=== PATIENT | male | born 1985 | race Caucasian/White ===

== ENCOUNTER → 2017-08-02 | Outpatient (CLI) | payer BC ==
--- NOTE | 2017-08-06 23:57 | SLEEPCENT ---
DATE OF PROCEDURE: 08/02/2017 ORDERED BY: Yaniv Xiong Nocturnal polysomnography was performed due to concern for the obstructive sleep apnea syndrome in this patient with comorbidities of hypertension. 7 hours and 13 minutes of data were reviewed. There were 348 minutes of sleep identified. Sleep latency was prolonged at 12 minutes. Rapid eye movement (REM) latency was prolonged at 200 minutes. Sleep architecture showed fragmentation. Three REM periods were appreciated late in the study. Overall sleep efficiency was 81.6% with significant reduction in REM time noted. The EKG showed baseline sinus rhythm with an average heart rate of 80 beats per minute. Rate variability was seen surrounding respiratory events. Rate ranged 50 to 80 beats per minute. EEG showed mild coarsening in background, some alpha intrusion at the non-REM stages. No focal events were identified. There were 41 respiratory events identified of 10 seconds in duration or greater for an apnea-hypopnea index of 7.1. The events were primarily obstructive, not exclusive to sleep stage nor body posture. Arousals from respiratory events occurred 4.7 times per hour and oxygen desaturations were seen into the 80s. There was some limb activity but arousals from limb events were few and remaining measures of sleep physiology were normal. IMPRESSION: Obstructive sleep apnea syndrome (G47.33), apnea-hypopnea index of 7.1. RECOMMENDATION: Consideration should be given for referral for a formal sleep evaluation and in laboratory pressure titration.
== END ==
LOC: M SLEEP 19:49
PROVIDERS: ATTEND Physician Assistant
DX: G47.33 Obstructive sleep apnea (adult) (pediatric) (principal)

== ENCOUNTER → 2018-12-24 | Outpatient (REF) ==
--- NOTE | 2018-12-25 02:26 | REP ---
Clinical: Pain and disability. Technique: AP, lateral, coned-down views of the lumbar spine. Findings: Three views of the lumbosacral spine demonstrate satisfactory alignment and lordosis without acute fracture / compression injury or subluxation. No significant degenerative changes are appreciated. Impression: Age-appropriate examination. No acute fracture / compression injury or subluxation. Electronically Signed by Lam Pedro MD 12/25/2018 02:17 A
--- NOTE | 2018-12-25 02:28 | REP ---
Clinical: Pain and disability. Technique: AP, lateral, open mouth views of the cervical spine. Findings: Alignment and lordosis maintained. Vertebral bodies are intact. No acute fracture / compression injury or subluxation. Mild endplate sclerosis and disc space narrowing at C7-T1 cannot be excluded. Remainder examination is relatively normal for age. Impression: Mild degenerative changes at C7-T1 suspected. Electronically Signed by Lam Pedro MD 12/25/2018 02:20 A
== END ==
LOC: M SMT 09:17
PROVIDERS: ATTEND Internal Medicine
DX: Z02.89 Encounter for other administrative examinations (principal)

== ENCOUNTER → 2021-01-04 | Outpatient (REF) | payer BC ==
[2021-01-04 18:13] LABS: BASO # 0.1 10^3/uL (0.0-0.2); BASO % 0.9 % (0.0-1.0); EOS # 0.1 10^3/uL (0.0-0.5); EOS % 1.8 % (0.0-3.0); HEMATOCRIT 45.8 % (42.0-52.0); HEMOGLOBIN 16.2 g/dl (13.5-17.5); MEAN CORPUSCULAR HEMOGLOBIN 30.3 pg (27.0-33.0); MEAN CORPUSCULAR HGB CONC 35.4 g/dl (32.0-36.5); MEAN CORPUSCULAR VOLUME 85.6 fl (80.0-96.0); MONO # 0.6 10^3/uL (0.0-0.8); NEUTROPHILS # 5.1 10^3/uL (1.5-8.5); NEUTROPHILS % 64.9 % (36.0-66.0); PLATELET COUNT, AUTOMATED 242 10^3/uL (150-450); RED BLOOD COUNT 5.35 10^6/uL (4.30-6.10); WHITE BLOOD COUNT 7.9 10^3/uL (4.0-10.0)
[2021-01-04 18:37] LABS: C REACTIVE PROTEIN QUANTITATIV 0.34 MG/DL (0.00-0.30); RHEUMATOID FACTOR QUANT < 10.0 IU/ML (<15.0)
[2021-01-04 18:47] LABS: BLOOD UREA NITROGEN 13 MG/DL (7-18); CHLORIDE LEVEL 105 MEQ/L (98-107); CREATININE FOR GFR 0.99 MG/DL (0.70-1.30); GLOMERULAR FILTRATION RATE > 60.0 (>60); GLUCOSE, FASTING 77 MG/DL (70-100); POTASSIUM SERUM 4.6 MEQ/L (3.5-5.1); SODIUM LEVEL 138 MEQ/L (136-145)
[2021-01-04 18:48] LABS: ALBUMIN 4.4 GM/DL (3.2-5.2); ALT/SGPT 41 U/L (12-78); BILIRUBIN,TOTAL 0.5 MG/DL (0.2-1.0); CALCIUM LEVEL 9.4 MG/DL (8.5-10.1); CARBON DIOXIDE LEVEL 30 MEQ/L (21-32); FREE T4 0.72 NG/DL (0.76-1.46); THYROID STIMULATING HORMONE 0.577 uIU/ML (0.358-3.740); TOTAL PROTEIN 7.4 GM/DL (6.4-8.2)
[2021-01-04 18:50] LABS: TOTAL 25(OH) VITAMIN D 18.9 NG/ML (30.0-100.0); VITAMIN B12 LEVEL 276 PG/ML
[2021-01-04 18:51] LABS: FOLATE 3.2 NG/ML
== END ==
LOC: M SFHCADAM 14:59
PROVIDERS: ATTEND Physician Assistant
DX: K21.9 Gastro-esophageal reflux disease without esophagitis (principal); F32.2 Major depressive disorder, single episode, severe without psychotic features; G43.101 Migraine with aura, not intractable, with status migrainosus

== ENCOUNTER → 2021-09-19 | Outpatient (REF) | payer BC | LOC: M SFHCADAM 10:24 | PROVIDERS: ATTEND Physician Assistant | DX: Z53.20 Procedure and treatment not carried out because of patient's decision for unspecified reasons (principal) ==

== ENCOUNTER → 2021-11-02 | Outpatient (REF) | payer BC ==
[2021-11-02 14:27] LABS: TOTAL 25(OH) VITAMIN D 22.6 NG/ML (30.0-100.0)
== END ==
LOC: M LABDRWAD 12:48
PROVIDERS: ATTEND Physician Assistant
DX: E55.9 Vitamin D deficiency, unspecified (principal); E53.8 Deficiency of other specified B group vitamins

== ENCOUNTER → 2021-11-02 | Outpatient (REF) | payer BC ==
[2021-11-02 14:18] LABS: C REACTIVE PROTEIN QUANTITATIV < 0.30 MG/DL (0.00-0.30); RHEUMATOID FACTOR QUANT < 10.0 IU/ML (<15.0); URIC ACID 6.7 MG/DL (3.5-7.2)
[2021-11-03 12:12] LABS: ANTI DOUBLE STRAND-DNA AB 13 IU/mL (0-9); ANTINUCLEAR ANTIBODIES DIRECT Positive (Negative); RNP ANTIBODIES <0.2 AI (0.0-0.9); SJOGREN'S ANTI SS-A <0.2 AI (0.0-0.9); SJOGREN'S ANTI SS-B <0.2 AI (0.0-0.9); SMITH ANTIBODIES <0.2 AI (0.0-0.9)
== END ==
LOC: M LABDRWAD 12:45
PROVIDERS: ATTEND Orthopaedic Surgery
DX: M25.532 Pain in left wrist (principal); M25.531 Pain in right wrist

== ENCOUNTER → 2022-12-05 | Outpatient (CLI) | payer BC, MEDICARE ==
[~2022-12-05] MED LIST: BACL1TAB9 PO; DULO40CA PO; GABA600T4 PO; OMEP40CA5 PO; TIZA6CAP PO
== END ==
LOC: M LABSMTC 09:20
PROVIDERS: ATTEND Anesthesiology
DX: Z01.812 Encounter for preprocedural laboratory examination (principal); Z11.52 Encounter for screening for COVID-19

== ENCOUNTER 2022-12-10 11:14 | Day surgery (SDC) | payer BC, MEDICARE ==
[~2022-12-10] VITALS: Ht 180.3 cm; Wt 88.9 kg
[~2022-12-10 11:14] MED LIST changes: +NS 1,000 ML IV ONE
[2022-12-10] MEDS ORDERED: propofoL 200 MG/20 ML VIAL As Ordered ONE ×2 (13:29→14:10)
[2022-12-10] MEDS ORDERED: fentaNYL 100 MCG/2 ML INJECTION As Ordered ONE (13:29)
[2022-12-10] MEDS ORDERED: LIDOCAINE 2% 100MG/5ML SDV (FOR ANES.) As Ordered ONE (13:29)
[2022-12-10 14:41] VITALS: BP 120/54
== END 2022-12-10 15:06 | disposition home or self-care (01) ==
LOC: M OPP 11:14
PROVIDERS: ATTEND Internal Medicine Gastroenterology
DX: D12.6 Benign neoplasm of colon, unspecified (principal); K57.30 Diverticulosis of large intestine without perforation or abscess without bleeding; K64.4 Residual hemorrhoidal skin tags; K64.8 Other hemorrhoids; K92.1 Melena; Z80.0 Family history of malignant neoplasm of digestive organs; K22.89 Other specified disease of esophagus; K29.70 Gastritis, unspecified, without bleeding; G47.33 Obstructive sleep apnea (adult) (pediatric); F41.9 Anxiety disorder, unspecified; G43.909 Migraine, unspecified, not intractable, without status migrainosus; Z79.891 Long term (current) use of opiate analgesic; Z79.899 Other long term (current) drug therapy
CPT/HCPCS: 43239; 45385; 88305; J3010

== ENCOUNTER → 2022-12-26 | Outpatient (REF) | payer BC, MEDICARE ==
[~2022-12-26] MED LIST changes: -NS 1,000 ML IV ONE
[2022-12-26 13:48] LABS: HEMATOCRIT 46.1 % (42.0-52.0); HEMOGLOBIN 15.9 g/dl (13.5-17.5); MEAN CORPUSCULAR HEMOGLOBIN 29.8 pg (27.0-33.0); MEAN CORPUSCULAR HGB CONC 34.5 g/dl (32.0-36.5); MEAN CORPUSCULAR VOLUME 86.3 fl (80.0-96.0); PLATELET COUNT, AUTOMATED 221 10^3/uL (150-450); RED BLOOD COUNT 5.34 10^6/uL (4.30-6.10)
[2022-12-26 13:58] LABS: ALKALINE PHOSPHATASE 81 U/L (46-116); ALT/SGPT 25 U/L (7.0-40); AST/SGOT 18 U/L (<34); BILIRUBIN,TOTAL 0.5 MG/DL (0.3-1.2); BLOOD UREA NITROGEN 13 MG/DL (9-23); CALCIUM LEVEL 9.2 MG/DL (8.5-10.1); CARBON DIOXIDE LEVEL 30 MMOL/L (20-31); CHLORIDE LEVEL 102 MMOL/L (98-107); CREATININE FOR GFR 0.89 MG/DL (0.70-1.30); FREE T4 0.95 NG/DL (0.89-1.76); GLOMERULAR FILTRATION RATE > 60.0 (>60); GLUCOSE, FASTING 87 MG/DL (60-100); POTASSIUM SERUM 4.5 MMOL/L (3.5-5.1); SODIUM LEVEL 138 MMOL/L (136-145); THYROID STIMULATING HORMONE 1.007 uIU/ML (0.55-4.78); TOTAL 25(OH) VITAMIN D 18.2 NG/ML (20.0-100.0); TOTAL PROTEIN 6.8 G/DL (5.7-8.2); VITAMIN B12 LEVEL 282 PG/ML (211-911)
[2022-12-26 14:00] LABS: FOLATE 6.4 NG/ML (>5.4)
== END ==
LOC: M SFHCADAM 09:26
PROVIDERS: ATTEND Physician Assistant
DX: R61 Generalized hyperhidrosis (principal); E53.8 Deficiency of other specified B group vitamins; E55.9 Vitamin D deficiency, unspecified; G47.33 Obstructive sleep apnea (adult) (pediatric); K21.9 Gastro-esophageal reflux disease without esophagitis

== ENCOUNTER → 2023-03-12 | Outpatient (REF) | LOC: M PLAIMG 10:28 | PROVIDERS: ATTEND Internal Medicine | DX: M54.50 Low back pain, unspecified (principal) ==